=== PATIENT | male | born 1990 | race Caucasian/White ===

== ENCOUNTER 2022-07-13 11:37 | Emergency (ER) | payer SELFPAY ==
[~2022-07-13] VITALS: Ht 170.2 cm; Wt 80.3 kg
[2022-07-13 12:12] VITALS: BP 166/115
--- NOTE | 2022-07-13 12:18 | NUR ---
32 Y/O MALE BIB SELF C/O RIGHT EYE SWELLING AND DISCHARGE X2DAYS, COUGH AND RUNNY NOSE NOTED. DENIES ANY BLURRING OF VISION OR OTHER CHANGES NKA PMH: DENIES
[2022-07-13] MEDS: FLUORESCEIN OPTH STRIP 1 MG OP ONE (13:47)
[2022-07-13] MEDS: TETRACAINE HCL/PF 0.5% OPTH 4 ML BTL OP ONE (13:48)
[2022-07-13] MEDS ORDERED: PRED20TA5 PO (14:55)
[2022-07-13] MEDS ORDERED: POLY10SO OP (14:55)
[2022-07-13] MEDS ORDERED: AMOX1TAB8 PO (14:55)
[2022-07-13] MEDS ORDERED: DIPH25TA53 PO (14:55)
[2022-07-13] MEDS ORDERED: SULF-59 PO (14:55)
[2022-07-13 15:22] VITALS: BP 139/88
--- NOTE | 2022-07-13 15:22 | NUR ---
Patient discharged with v/s stable. Written and verbal after care instructions FOR ANGIO EDEMA, PRESEPTAL CELLULITS given and explained. Patient alert, oriented and verbalized understanding of instructions. Ambulatory with steady gait. All questions addressed prior to discharge. ID band removed. Patient advised to follow up with PMD. Rx of BENADRYL, DELTASONE, BACTRIM AND AMOXICILLIN given. Opportunity to ask questions provided and answered.
== END 2022-07-13 15:22 | disposition home or self-care (01) ==
LOC: MED 11:37 → EDSEX 11:37 → MED 15:22
DX: R21 Rash and other nonspecific skin eruption (principal); H10.9 Unspecified conjunctivitis; Z79.899 Other long term (current) drug therapy; Z79.2 Long term (current) use of antibiotics
CPT/HCPCS: 99283